=== PATIENT | male | born 1960 | race Caucasian/White ===

== ENCOUNTER 2020-07-07 15:21 | Inpatient (IN) | payer OTHER ==
[2020-07-07 16:32] LABS: BASO % 0.3 % (0-2.0); EOS % 1.7 % (0-4.5); HEMATOCRIT 47.2 % (35.4-49); HEMOGLOBIN 16.1 GM/dL (11.7-16.9); LYMPH % 25.5 % (8-40); MCH 32.7 pg (25.7-33.7); MEAN CELL VOLUME 96.2 fl (80-96); MEAN PLT VOLUME 9.4 fl (7.5-11.1); NEUT % 57.5 % (42.8-82.8); PLATELET COUNT 176 K/MM3 (134-434); RBC 4.91 M/mm3 (4.00-5.60); RDW 13.6 % (11.9-15.9); WHITE BLOOD COUNT 7.3 K/mm3 (4.0-10.0)
[2020-07-07 16:39] LABS: INR 1.78 (0.83-1.09); PROTHROMBIN TIME (PATIENT) 21.5 SEC (9.7-13.0)
[2020-07-07 16:51] LABS: POTASSIUM 3.9 mmol/L (3.5-5.1)
[2020-07-07 16:53] LABS: CALCIUM 9.6 mg/dL (8.5-10.1)
[2020-07-07 16:54] LABS: ALBUMIN 4.2 g/dl (3.4-5.0); BLOOD UREA NITROGEN 17.9 mg/dL (7-18)
[2020-07-07 16:59] LABS: BILIRUBIN,TOTAL 0.8 mg/dL (0.2-1); TOT PROT 7.2 g/dl (6.4-8.2)
[2020-07-07] MEDS ORDERED: ACETAMINOPHEN 325 MG TABLET (FP) PO PRN (17:25)
[2020-07-07] MEDS ORDERED: MORPHINE SULFATE 2 MG/ML VIAL IVPUSH PRN (17:25)
[2020-07-07] MEDS ORDERED: PANTOPRAZOLE 40 MG TABLET ONE (17:40)
[2020-07-07] MEDS: PANTOPRAZOLE 40 MG TABLET PO SCH (17:42)
[2020-07-07] MEDS ORDERED: METOPROLOL TARTRATE 50 MG TABLET (FP) ONE (22:01)
[2020-07-07] MEDS: METOPROLOL TARTRATE 50 MG TABLET (FP) PO SCH (22:12)
[2020-07-08 02:48] VITALS: BMI 31.1
[2020-07-08] MEDS ORDERED: BUPIVACAINE HCL/PF 0.5% (5MG/ML) 10 ML VIAL IJ ONE ×3 (08:25→10:23)
[2020-07-08] MEDS ORDERED: PROPOFOL 20 ML ONE ×2 (08:42)
[2020-07-08] MEDS ORDERED: fentaNYL CITRATE 250 MCG/5 ML VIAL ONE (08:42)
[2020-07-08] MEDS ORDERED: LIDOCAINE HCL/PF 2% SDV 5ML VIAL ONE (08:42)
[2020-07-08] MEDS ORDERED: SUCCINYLCHOLINE CHLORIDE 200 MG/10 ML SYRINGE ONE (08:42)
[2020-07-08] MEDS ORDERED: ROCURONIUM BROMIDE 50 MG/5 ML SYRINGE ONE ×2 (08:43→10:37)
[2020-07-08] MEDS ORDERED: MIDAZOLAM HCL 2 MG/2 ML SINGLE DOSE VIAL ONE (08:43)
[2020-07-08] MEDS ORDERED: LIDOCAINE HCL 1%, 10 MG/ML (20ML VIAL) ONE (10:15)
[2020-07-08] MEDS ORDERED: ceFAZolin 2 GRAM PREMIX BAG IVPB ONE (10:21)
[2020-07-08] MEDS ORDERED: METOPROLOL TARTRATE 5 MG/5 ML VIAL ONE (10:28)
[2020-07-08] MEDS ORDERED: ceFAZolin SODIUM 1 GM VIAL ONE ×2 (10:28)
[2020-07-08] MEDS ORDERED: DEXAMETHASONE SOD PHOSPHATE 4 MG/1 ML VIAL ONE (10:37)
[2020-07-08] MEDS ORDERED: KETOROLAC TROMETHAMINE 30 MG/1 ML VIAL ONE (10:37)
[2020-07-08] MEDS ORDERED: NEOSTIGMINE METHYLSULFATE 0.5 MG/ML - 10 ML MDV ONE (11:26)
[2020-07-08] MEDS ORDERED: GLYCOPYRROLATE 0.2 MG/1 ML VIAL ONE ×2 (11:26)
[2020-07-08] MEDS ORDERED: PROMETHAZINE HCL 25 MG/1 ML VIAL IVPUSH PRN (11:44)
[2020-07-08] MEDS ORDERED: oxyCODONE HCL 5 MG TABLET PO PRN ×2 (11:44→11:46)
[2020-07-08] MEDS ORDERED: ONDANSETRON 4 MG/2 ML VIAL IVPUSH PRN (11:44)
[2020-07-08] MEDS ORDERED: ACETAMINOPHEN 1000 MG/100 ML VIAL (NON FORMULARY) IVPB PRN (11:45)
[2020-07-08] MEDS: METOPROLOL TARTRATE 50 MG TABLET (FP) PO SCH ×2 (12:25→21:10)
[2020-07-08] MEDS: SODIUM CHLORIDE 1,000 ML IV SCH (13:40)
[2020-07-08] MEDS: HYDROCHLOROTHIAZIDE 12.5 MG CAPSULE (FP) PO SCH (14:02)
[2020-07-08] MEDS: LISINOPRIL 20 MG TABLET PO SCH (14:02)
[2020-07-08] MEDS: PANTOPRAZOLE 40 MG TABLET PO SCH (14:52)
[2020-07-09 09:29] LABS: HEMATOCRIT 41.3 % (35.4-49); HEMOGLOBIN 14.5 GM/dL (11.7-16.9); INR 1.25 (0.83-1.09); MCH 33.3 pg (25.7-33.7); MCHC 35.2 g/dl (32.0-35.9); MEAN CELL VOLUME 94.5 fl (80-96); MEAN PLT VOLUME 9.5 fl (7.5-11.1); PLATELET COUNT 172 K/MM3 (134-434); PROTHROMBIN TIME (PATIENT) 15.3 SEC (9.7-13.0); RBC 4.37 M/mm3 (4.00-5.60); RDW 13.3 % (11.9-15.9); WHITE BLOOD COUNT 10.8 K/mm3 (4.0-10.0)
[2020-07-09 09:58] VITALS: BP 118/78; PULSE 75; TEMP 97.6
[2020-07-09 10:00] LABS: BLOOD UREA NITROGEN 17.1 mg/dL (7-18)
[2020-07-09 10:01] LABS: CALCIUM 8.7 mg/dL (8.5-10.1)
[2020-07-09 10:03] LABS: BILIRUBIN,TOTAL 1.1 mg/dL (0.2-1); TOT PROT 6.3 g/dl (6.4-8.2)
[2020-07-09 10:04] LABS: ALBUMIN 3.3 g/dl (3.4-5.0); CREATININE 0.8 mg/dL (0.55-1.3)
[2020-07-09] MEDS: METOPROLOL TARTRATE 50 MG TABLET (FP) PO SCH (10:25)
[2020-07-09] MEDS: HYDROCHLOROTHIAZIDE 12.5 MG CAPSULE (FP) PO SCH (10:25)
[2020-07-09] MEDS: LISINOPRIL 20 MG TABLET PO SCH (10:25)
[2020-07-09] MEDS: PANTOPRAZOLE 40 MG TABLET PO SCH (10:25)
[2020-07-09] MEDS: SODIUM CHLORIDE 1,000 ML IV SCH (11:54)
[2020-07-09] MEDS ORDERED: RIVAROXABAN 20 MG TABLET PO SCH (18:00)
== END 2020-07-09 12:47 | disposition home or self-care (01) | DRG 355 ==
LOC: JER 15:21 → JERBED 17:25 → J8W 07-08 01:45
PROVIDERS: ADMIT Family Medicine; ATTEND Family Medicine
PROC: 0WQF0ZZ Repair Abdominal Wall, Open Approach (ICD-10-PCS; principal; 2020-07-08 08:00)
DX: K42.0 Umbilical hernia with obstruction, without gangrene (principal); I10 Essential (primary) hypertension; I48.91 Unspecified atrial fibrillation; Z79.01 Long term (current) use of anticoagulants; I71.4 Abdominal aortic aneurysm, without rupture; K42.9 Umbilical hernia without obstruction or gangrene; K21.9 Gastro-esophageal reflux disease without esophagitis
CPT/HCPCS: 36415; 80053; 83605; 85025; 85027; 85610; 86850; 86900; 86901; 88302-TC; 93005; 93010; 94760; 99285-25; C9803; U0003; U0005